=== PATIENT | female | born 1970 | race Caucasian/White ===

== ENCOUNTER → 2017-02-14 | Outpatient (CLI) | payer MEDICARE, MEDICAID ==
[~2017-02-14] MED LIST: AMITRIPTYLINE 225 MG PO; CIPRO 500MG TA500 MG PO; DILANTIN 100MG100 MG PO; ESCITALOPRAM10 M1 PO; ESCITALOPRAM20 MG PO; FLAGYL 500MG.500 MG PO; FLEXERIL10 MG PO; IBU400 MG PO; LORTAB 10/3251 TAB PO; MIRALAX17 GM PO; PERCOCET 5/3251 EACH PO; PROBIOTIC BLEN1 EACH PO; PROPRANOLOL HCL20 MG PO; VALIUM 10MG TAB10 MG PO; ZOFRAN4 MG PO
[2017-02-14 14:40] LABS: HEMOGLOBIN 11.2 g/dL (12.2-16.2); LYMPH # 2.2 K/mm3 (0.7-4.5); LYMPH % 23.5 % (10-50.0)
[2017-02-14 17:35] LABS: BUN 7 mg/dL (7-18)
[2017-02-14 17:37] LABS: GFR (ESTIMATED) 133 ML/MIN (59-)
== END ==
LOC: LAB 14:20
PROVIDERS: Surgery
DX: R10.9 Unspecified abdominal pain (principal); Z90.49 Acquired absence of other specified parts of digestive tract; Z09 Encounter for follow-up examination after completed treatment for conditions other than malignant neoplasm

== ENCOUNTER 2017-06-11 21:20 | Emergency (ER) | payer MEDICARE, MEDICAID ==
[~2017-06-11] VITALS: Ht 167.6 cm; Wt 52.2 kg
[2017-06-11] MEDS ORDERED: PROTONIX 40MG T40 MG PO (21:35)
--- OUTSIDE RECORDS SUMMARY | 2017-06-11 21:44 | External Medical Summary Rpt ---
Author Author [facility] Organization [facility] Address Unknown Phone Unavailable Care Team Providers Care Corporate Legal Assistant Name Role Phone Jem FINK PCP [phone] [facility] [id number] Date(s): 01/24/17 - 01/25/17 [facility] [address] [place] [address]- [phone] Discharge Diagnosis: Elevated white blood cell count Discharge Diagnosis: Hypokalemia Discharge Diagnosis: Bilateral pleural effusion Discharge Diagnosis: Elevated liver enzymes Discharge Diagnosis: Abdominal pain Discharge Disposition: OP Self Care or Home Attending Physician: ROSITA GILMAN MD-EMR Admitting Physician: ROSITA GILMAN MD-EMR Referring Physician: ROSITA GILMAN MD-EMR Reason for Visit UNSPECIFIED ABDOMINAL PAIN Vital Signs Most recent 1 2 to oldest [Reference Range]: Temperature Oral Oral Source (01/25/17 1:00 AM) (01/24/17 6:01 PM) Temperature Fahrenheit Fahrenheit Mode (01/25/17 1:00 AM) (01/24/17 6:01 PM) Temperature, 98.7 Deg F 99.3 Deg F Fahrenheit (01/25/17 1:00 AM) (01/24/17 6:01 PM) [96.8-99.7 Deg F] Clinical 37.1 Deg C 37.4 Deg C Temperature, (01/25/17 1:00 AM) (01/24/17 6:01 PM) C Peripheral 89 bpm 119 bpm Pulse Rate (01/25/17 1:00 AM) *HI* [60-100 bpm] (01/24/17 6:01 PM) Respiratory 16 Breaths/Min Rate [14-20 (01/25/17 1:00 AM) Breaths/Min] Blood 121/74 mmHg 113/68 mmHg Pressure (01/25/17 1:00 AM) (01/24/17 6:01 PM) [90-140/60-9 0 mmHg] Oxygen 96 % 94 % Saturation (01/25/17 1:00 AM) (01/24/17 6:01 PM) [94-100 %] Oxygen Room air Room air Therapy Mode (01/25/17 1:00 AM) (01/24/17 6:01 PM) Height Stated Source (01/24/17 6:01 PM) Height Entry [place] Format (01/24/17 6:01 PM) Height/Lengt 5 ft h, BERMUDIAN (01/24/17 6:01 PM) (ft) Height/Lengt 6 Inch h BERMUDIAN (01/24/17 6:01 PM) CLINICALHEIG 167.64 cm HT (01/24/17 6:01 PM) Weight Critical estimated dosing Source, ED weight (01/24/17 6:01 PM) Weight Entry [place] Format (01/24/17 6:01 PM) Weight 125 lb [place] lb (01/24/17 6:01 PM) CLINICALWEIG 56.82 kg HT (01/24/17 6:01 PM) Body Surface 1.64 m2 Area (BSA) (01/24/17 6:01 PM) Body Mass 20.2 kg/m2 Index (BMI) (01/24/17 6:01 PM) [19.0-24.0 kg/m2] Dexter Body 59 kg Weight (01/24/17 6:01 PM) Problem List Condition Effective Status Health Informant Dates Status Epilepsy(Con Active firmed) History of Active pseudoseizur e(Confirmed) Bipolar Active disorder(Con firmed) Allergies, Adverse Reactions, Alerts Substance Reaction Severity Status acetaminophen-pr Active opoxyphene OXcarbazepine Active PARoxetine Active penicillin Active traMADol Active Medications acetaminophen-hydrocodone (acetaminophen-hydrocodone 325 mg-10 mg oral tablet) Refills: 0 amitriptyline (amitriptyline 25 mg oral tablet) Refills: 0 diazepam (diazepam 10 mg oral tablet)1 Tab, Oral, Three Times A Day, As Needed, for anxiety, Refills: 0 naproxen (naproxen 500 mg oral tablet) Refills: 0 ondansetron (ondansetron 4 mg oral tablet, disintegrating)1 Tab, Oral, zzzAdHoc, Refills: 0 phenytoin (phenytoin 100 mg oral capsule, extended release) Refills: 0 propranolol (propranolol 20 mg oral tablet) Refills: 0 Results GENERAL CHEMISTRY Most recent 1 2 to oldest [Reference Range]: Sodium Level 135 mmol/L [136-146 *LOW* mmol/L] (01/24/17 9:19 PM) Potassium 3.2 mmol/L Level *LOW* [3.5-5.1 (01/24/17 9:19 PM) mmol/L] Chloride 99 mmol/L Level *LOW* [102-112 (01/24/17 9:19 PM) mmol/L] Carbon 26 mmol/L Dioxide (01/24/17 9:19 PM) Level [21-32 mmol/L] Anion Gap 13 [9-20] (01/24/17 9:19 PM) Glucose 117 mg/dL Level *HI* [74-106 (01/24/17 9:19 PM) mg/dL] Blood Urea 3 mg/dL Nitrogen *LOW* [7-22 mg/dL] (01/24/17 9:19 PM) Creatinine 0.40 mg/dL Level *LOW* [0.55-1.02 (01/24/17 9:19 PM) mg/dL] eGFR 210 mL/min/1.73m2 [>=60 (01/24/17 9:19 PM) mL/min/1.73m 2] eGFR 173 mL/min/1.73m2 NonAfrican (01/24/17 9:19 PM) [>=60 mL/min/1.73m 2] Bun/Creatini 7.5 ne *LOW* [8.0-20.0] (01/24/17 9:19 PM) Calcium 8.2 mg/dL Level *LOW* [8.5-10.1 (01/24/17 9:19 PM) mg/dL] Protein 6.6 Gram/dL Total (01/24/17 9:19 PM) [6.4-8.2 Gram/dL] Albumin 1.7 Gram/dL Level *LOW* [3.4-5.0 (01/24/17 9:19 PM) Gram/dL] Globulin 4.9 Gram/dL [1.5-4.5 *HI* Gram/dL] (01/24/17 9:19 PM) A/G Ratio 0.3 [1.1-2.5] *LOW* (01/24/17 9:19 PM) Bilirubin 0.2 mg/dL Total (01/24/17 9:19 PM) [0.2-1.0 mg/dL] Alk Phos 433 Units/Liter [27-136 *HI* Units/Liter] (01/24/17 9:19 PM) AST [5-37 120 Units/Liter Units/Liter] *HI* (01/24/17 9:19 PM) ALT [12-78 77 Units/Liter Units/Liter] (01/24/17 9:19 PM) Lipase Level 75 Units/Liter [73-393 (01/24/17 9:19 PM) Units/Liter] Lactic Acid 1.3 mmol/L 3.0 mmol/L 1 Level (01/24/17 11:19 PM) *CRIT* [0.4-2.0 (01/24/17 9:19 PM) mmol/L] 1Result Comment: CALLED TO:Kendall Miller DATE/TIME CALLED:01/24/2017 22:01:43 EDT READ BACK AND VERIFIED:y CALLED BY: [email or web address] Most recent 1 2 to oldest [Reference Range]: WBC 18.8 K/uL [4.0-10.0 *HI* K/uL] (01/24/17 9:19 PM) RBC 3.23 Million/uL [3.93-5.22 *LOW* Million/uL] (01/24/17 9:19 PM) Hgb 9.7 g/dL [11.2-15.7 *LOW* g/dL] (01/24/17 9:19 PM) Hct 29.4 % [34.1-44.9 *LOW* %] (01/24/17 9:19 PM) MCV 91.0 fL [79.0-94.8 (01/24/17 9:19 PM) fL] MCH 30.0 pg [25.6-32.2 (01/24/17 9:19 PM) pg] MCHC 33.0 Gram/dL [32.2-36.5 (01/24/17 9:19 PM) Gram/dL] Platelet 808 K/uL Count *HI* [163-369 (01/24/17 9:19 PM) K/uL] MPV 8.8 fL [9.4-12.4 *LOW* fL] (01/24/17 9:19 PM) RDW 12.8 % [11.6-14.4 (01/24/17 9:19 PM) %] Neutrophil 82 % Percent Man *HI* [50-65 %] (01/24/17 9:19 PM) Lymph 9 % Percent Man *LOW* [24-44 %] (01/24/17 9:19 PM) [place] Percent 8 % Man [4-5 %] *HI* (01/24/17 9:19 PM) Eos Percent 0 % Man [0-3 %] (01/24/17 9:19 PM) Baso Percent 1 % Man [0-1 %] (01/24/17 9:19 PM) RBC Normal Morphology (01/24/17 9:19 PM) Platelet Ct Increased Estimate *ABN* [Adequate] (01/24/17 9:19 PM) Slide Review Add Diff Man (01/24/17 9:19 PM) URINALYSIS Most recent 1 2 to oldest [Reference Range]: Urine Type U CleanCatch (01/24/17 9:27 PM) Urine Color Yellow *NA* (01/24/17 9:27 PM) Urine Clear Appearance (01/24/17 9:27 PM) Urine 1.019 Specific (01/24/17 9:27 PM) [place] [1.005-1.030 ] Urine pH 6.0 Dipstick (01/24/17 9:27 PM) [6.0-8.0] Urine Negative Leukocyte (01/24/17 9:27 PM) Esterase [Negative] Urine Negative Nitrite (01/24/17 9:27 PM) [Negative] Urine Trace Protein *ABN* Dipstick (01/24/17 9:27 PM) [Negative] Urine Negative Glucose (01/24/17 9:27 PM) Dipstick [Negative] Urine Negative Ketones (01/24/17 9:27 PM) Dipstick [Negative] Urine 1.0 EU/dL Urobilinogen (01/24/17 9:27 PM) Dipstick Urine Negative Bilirubin (01/24/17 9:27 PM) Dipstick [Negative] Urine Blood Negative Dipstick (01/24/17 9:27 PM) [Negative] Ur RBC 0-2 /HPF *ABN* (01/24/17 9:27 PM) Ur WBC 0-2 /HPF (01/24/17 9:27 PM) Ur Mucous Trace *ABN* (01/24/17 9:27 PM) Ur Squamous 2-5 /HPF Epithelial *ABN* Cells (01/24/17 9:27 PM) Ur Hyaline 0-2 /LPF Casts *ABN* (01/24/17 9:27 PM) Ur WBC Casts 0-2 /LPF *ABN* (01/24/17 9:27 PM) Microbiology Reports TEST: Wound Culture STATUS: Order in Progress BODY SITE: Abdomen SOURCE: Wound COLLECTED DATE/TIME: 01/24/17 10:01 PMPRELIMINARY REPORTNo growthSTAIN REPORTNo organisms seen. No cells seenTEST: Blood Culture STATUS: Order in Progress BODY SITE: SOURCE: Blood COLLECTED DATE/TIME: 01/24/17 9:19 PMPRELIMINARY REPORTNo growth at 1 day.TEST: Blood Culture STATUS: Order in Progress BODY SITE: SOURCE: Blood COLLECTED DATE/TIME: 01/24/17 9:19 PMPRELIMINARY REPORTNo growth at 1 day. Immunizations No data available for this section Procedures No data available for this section Social History Social History Response Type Smoking Status Tobacco Use Within Last Twelve Months Cigarettes; Current every day smoker; Packs/Tins Daily 1 Assessment and Plan No data available for this section Hospital Discharge Instructions Patient EducationAbdominal Pain, Adult, [id number] Colostomy Home Guide Colostomy Surgery, Care After
--- OUTSIDE RECORDS SUMMARY | 2017-06-11 21:44 | External Medical Summary Rpt ---
Author Author [facility] Organization [facility] Address Unknown Phone Unavailable Care Team Providers Care Engraver Jewelry Name Role Phone Jem FINK PCP [phone] Encounter [facility] [id number] Date(s): 01/24/17 - 01/25/17 [facility] [address] [place] [address]- [phone] Discharge Diagnosis: Elevated white blood cell count [...] Stated Source (01/24/17 6:01 PM) Height Entry [place] Format (01/24/17 6:01 PM) Height/Lengt 5 ft h, CYMRA[place] (01/24/17 6:01 PM) (ft) Height/Lengt 6 Inch h CYMRAES (01/24/17 6:01 PM) CLINICALHEIG 167.64 cm HT (01/24/17 6:01 PM) Weight Critical estimated dosing Source, ED weight (01/24/17 6:01 PM) Weight Entry [place] Format (01/24/17 6:01 PM) Weight 125 lb [place] lb (01/24/17 6:01 PM) CLINICALWEIG 56.82 kg HT (01/24/17 6:01 PM) Body Surface 1.64 m2 Area (BSA) (01/24/17 6:01 PM) Body Mass 20.2 kg/m2 Index (BMI) (01/24/17 6:01 PM) [19.0-24.0 kg/m2] [place] Body 59 kg Weight (01/24/17 6:01 PM) [...] Man *LOW* [24-44 %] (01/24/17 9:19 PM) [place] Percent 8 % Man [4-5 %] *HI* [...] PM) Urine 1.019 Specific (01/24/17 9:27 PM) [place] [1.005-1.030 ] Urine pH 6.0 Dipstick (01/24/17 [...] Hospital Discharge Instructions Patient EducationAbdominal Pain, Adult, [id number] Colostomy Home Guide Colostomy Surgery, Care After
--- OUTSIDE RECORDS SUMMARY | 2017-06-11 21:58 | External Medical Summary Rpt ---
Author Author , ESTHER SANTANA Address Unknown Phone .[employer] Immunization Name Date Rout CVX Reac Dose Comm Prov Is Faci e tion ent ider Refu lity Give sed n Td 07-0 9 999 Hist H149 No H149 (brett 7-20 oric lt), 00 al Info adso rmat rbed ion - Sour ce Unsp ecif ied
--- OUTSIDE RECORDS SUMMARY | 2017-06-11 21:58 | External Medical Summary Rpt ---
Author Author , ESTHER SANTANA Address Unknown Phone [email or web address] Immunization Name Date Rout CVX Reac Dose Comm Prov Is Faci e tion ent ider Refu lity Give sed n Td 07-0 9 999 Hist H149 No H149 (brett 7-20 oric lt), 00 al Info adso rmat rbed ion - Sour ce Unsp ecif ied
[2017-06-11 22:51] VITALS: BP 127/74
--- NOTE | 2017-06-11 22:51 | Emergency Room Report ---
History of Present Illness Time Seen by [id number] Presenting Problem in Triage Pt arrived:Walked Presenting Problem:PT. STATES SHE HAS A KNOT THE SIZE OF A BASEBALL BESIDE COLOSTOMY BAG. HAS HAD COLOSTOMY SINCE DECEMBER. 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 N Clinical Suspician of Infection? N Mental Status: 1 - Regular (Normal Baseline) Sepsis Risk:Possible Sepsis Risk Have you (or family members/close friends) recently traveled outside the [place]? N If Yes, where/when: Have you had exposure to infectious disease within the past month? N TB? Other? Specify: Source patient, RN notes reviewed, family, old records Exam Limitations no limitations Comment pt with colostomy earlier this yr and noted swelling to abd pericolostomy area- pt with no fever and colostomy working - no vomiting and no sig pain Cardiac Chest Pain Chest pain indicative of cardiac No Timing/Duration this evening Severity moderate ALLERGIES Coded Allergies: acetaminophen (From DARVOCET-N) (Mild, 01/27/17) paroxetine (Mild, 01/27/17) propoxyphene (From DARVOCET-N) (Mild, 01/27/17) tramadol (From ULTRAM) (Mild, 01/27/17) Penicillins (01/27/17) oxcarbazepine (From TRILEPTAL) (I-RASH 01/27/17) Home Medications Reported Medications Escitalopram Oxalate 10 MG PO DAILY #30 TAB Phenytoin Sodium (Dilantin 100MG CAP) 200 MG PO BID Propranolol Hcl 20 MG PO BID Diazepam (Valium 10MG) 10 MG PO BID Amitriptyline Hcl (Amitriptyline) 75 MG PO QHS HYDROCODONE/ACETAMINOPHEN (Lortab 10-325 MG Tablet) 1 TAB PO QID Pantoprazole Sodium (Protonix 40MG TAB) 40 MG PO DAILY History Medical History General CAD? No Angina: Yes [place]: Yes Hypertension? No Hyperlipidemia? No CHF? No DVT? No PE? No COPD? No Asthma? No Anemia? No GERD? No Gastric ulcers? No GI Bleed? No Hernia? No Thyroid Problems? No Hypothyroidism? No CVA? No Seizures? Yes Diabetes? No End Stage Renal Disease? No UTI? Yes Stones? Yes BPH? No GB Disease: Yes Nephritic Syndrome? No Asplenia? No Hepatitis? No Sickle Cell Disease? No Arthritis? No Migraines? No Cataracts? No Glaucoma? No MRSA? No HIV? No TB? No Anxiety? Yes Depression? Yes Cancer? No More? 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 Respiratory denies cough, denies shortness of breath, denies wheezing Cardiovascular denies chest pain, denies palpitations, denies syncope Gastrointestinal see HPI, denies abdominal pain, denies diarrhea, denies vomiting, other Genitourinary denies: dysuria, frequency, hesitancy, hematuria. Musculoskeletal denies back pain, denies joint pain, denies joint swelling, denies neck pain Skin denies rash Psychiatric/Neurological denies headache, denies seizure Physical Exam Vital Signs Vital Signs Date Time Temp Pulse Resp B/P Pulse O2 O2 Flow FiO2 Ox Delivery Rate 06/11 2125 98.4 94 20 127/74 100 - WBC >12,000 or <4,000 or 10% bands? 2 or more SIRS Criteria Met? B/P:127/74 MAP:91 Creatinine >2.0? UA output<0.5ml/kg/hr for 2 hrs? Platelet count >100,000? Lactate >2.0mmol/1? INR >1.2 or PTT > than 60 sec? Evidence of Organ Dysfunction? Provider documented clinical suspician of infection? N Sepsis Criteria Count: 2 Sepsis Risk: Possible Sepsis Risk General Appearance no apparent distress Eye Exam - bilateral eye PERRL, bilateral eye EOMI Ear, Nose, Throat normal ENT inspection Neck supple Respiratory Status No: respiratory distress. 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 No Departure Departure Time of Disposition 2244 Disposition DC Home or Self Care(routine) Clinical Impression Primary Impression: Seroma Condition STABLE Referrals Supa Rodgers MD (Family) Patient Instructions How to Care for Your Colostomy or Ileostomy Additional Instructions call dr russo and recheck if needed Discharge Counseling Counseled pt/family regarding diagnosis, follow up needs ED Critical Care Critical Care No Comments pt and i agreed to hold on ct at this time at 2250
--- NOTE | 2017-06-11 22:51 | Emergency Room Report ---
History of Present Illness Time Seen by [id number] Presenting Problem in Triage Pt arrived:Walked Presenting Problem:PT. STATES SHE HAS A KNOT THE SIZE OF A BASEBALL BESIDE COLOSTOMY BAG. HAS HAD COLOSTOMY SINCE DECEMBER. 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 N Clinical Suspician of Infection? N Mental Status: 1 - Regular (Normal Baseline) Sepsis Risk:Possible Sepsis Risk Have you (or family members/close friends) recently traveled outside the [place]? N If Yes, where/when: Have you had exposure to infectious disease within the past month? N TB? Other? Specify: Source patient, RN notes reviewed, family, old records Exam Limitations no limitations Comment pt with colostomy earlier this yr and noted swelling to abd pericolostomy area- pt with no fever and colostomy working - no vomiting and no sig pain Cardiac Chest Pain Chest pain indicative of cardiac No Timing/Duration this evening Severity moderate ALLERGIES Coded Allergies: acetaminophen (From DARVOCET-N) (Mild, 01/27/17) paroxetine (Mild, 01/27/17) propoxyphene (From DARVOCET-N) (Mild, 01/27/17) tramadol (From ULTRAM) (Mild, 01/27/17) Penicillins (01/27/17) oxcarbazepine (From TRILEPTAL) (I-RASH 01/27/17) Home Medications Reported Medications Escitalopram Oxalate 10 MG PO DAILY #30 TAB Phenytoin Sodium (Dilantin 100MG CAP) 200 MG PO BID Propranolol Hcl 20 MG PO BID Diazepam (Valium 10MG) 10 MG PO BID Amitriptyline Hcl (Amitriptyline) 75 MG PO QHS HYDROCODONE/ACETAMINOPHEN (Lortab 10-325 MG Tablet) 1 TAB PO QID Pantoprazole Sodium (Protonix 40MG TAB) 40 MG PO DAILY History Medical History General CAD? No Angina: Yes [place]: Yes Hypertension? No Hyperlipidemia? No CHF? No DVT? No PE? No COPD? No Asthma? No Anemia? No GERD? No Gastric ulcers? No GI Bleed? No Hernia? No Thyroid Problems? No Hypothyroidism? No CVA? No Seizures? Yes Diabetes? No End Stage Renal Disease? No UTI? Yes Stones? Yes BPH? No GB Disease: Yes Nephritic Syndrome? No Asplenia? No Hepatitis? No Sickle Cell Disease? No Arthritis? No Migraines? No Cataracts? No Glaucoma? No MRSA? No HIV? No TB? No Anxiety? Yes Depression? Yes Cancer? No More? 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 Respiratory denies cough, denies shortness of breath, denies wheezing Cardiovascular denies chest pain, denies palpitations, denies syncope Gastrointestinal see HPI, denies abdominal pain, denies diarrhea, denies vomiting, other Genitourinary denies: dysuria, frequency, hesitancy, hematuria. Musculoskeletal denies back pain, denies joint pain, denies joint swelling, denies neck pain Skin denies rash Psychiatric/Neurological denies headache, denies seizure Physical Exam Vital Signs Vital Signs Date Time Temp Pulse Resp B/P Pulse O2 O2 Flow FiO2 Ox Delivery Rate 06/11 2125 98.4 94 20 127/74 100 - WBC >12,000 or <4,000 or 10% bands? 2 or more SIRS Criteria Met? B/P:127/74 MAP:91 Creatinine >2.0? UA output<0.5ml/kg/hr for 2 hrs? Platelet count >100,000? Lactate >2.0mmol/1? INR >1.2 or PTT > than 60 sec? Evidence of Organ Dysfunction? Provider documented clinical suspician of infection? N Sepsis Criteria Count: 2 Sepsis Risk: Possible Sepsis Risk General Appearance no apparent distress Eye Exam - bilateral eye PERRL, bilateral eye EOMI Ear, Nose, Throat normal ENT inspection Neck supple Respiratory Status No: respiratory distress. 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 No Departure Departure Time of Disposition 2244 Disposition DC Home or Self Care(routine) Clinical Impression Primary Impression: Seroma Condition STABLE Referrals Supa Rodgers MD (Family) Patient Instructions How to Care for Your Colostomy or Ileostomy Additional Instructions call dr russo and recheck if needed Discharge Counseling Counseled pt/family regarding diagnosis, follow up needs ED Critical Care Critical Care No Comments pt and i agreed to hold on ct at this time at 2250
== END 2017-06-11 22:51 ==
LOC: ER 21:20
DX: K91.872 Postprocedural seroma of a digestive system organ or structure following a digestive system procedure (principal); R56.9 Unspecified convulsions; F41.8 Other specified anxiety disorders; Z72.0 Tobacco use

== ENCOUNTER → 2017-09-19 | Outpatient (CLI) | payer MEDICARE, MEDICAID ==
[~2017-09-19] MED LIST changes: +PROTONIX 40MG T40 MG PO
--- NOTE | 2017-09-19 10:28 | RADIOLOGY REPORT PS360 ---
CT ABD PELVIS W/ CONTRAST CLINICAL INDICATION: PRIOR COLON RESECTION, ABD SWELLING ORDERING PHYSICIAN: Oracio Rosen MD PATIENT AGE: 47 years COMPARISON: 06/24/2017 TECHNIQUE: Axial images obtained with sagittal and coronal reformats. PROCEDURE: Oral Contrast: Redicat IV Contrast: 75 mL's Isovue-370 FINDINGS: Fibrotic changes are present in the left lung base. The liver, spleen, adrenal glands have an unremarkable appearance. No obvious pancreatic mass or ductal dilatation. There is pancreatic atrophy. Prior cholecystectomy without biliary dilatation. There are few small lymph nodes in the celiac region unchanged. No renal or ureteral calculi or hydronephrosis or renal mass is evident. There is a left upper quadrant colostomy which has an unremarkable appearance. A Quispe's pouch is present. No pelvic or abdominal mass or abnormal fluid collection. No abscess or focal inflammatory change. No evidence of appendicitis or diverticulitis. No acute bony anomalies. There is diastases of the abdominal wall centrally but no eloisa herniation as before. IMPRESSION: 1. No acute intra-abdominal or pelvic pathology. No significant change. 2. Postsurgical changes from prior partial colectomy of the descending and sigmoid colon with left upper quadrant colostomy
== END ==
LOC: RAD 08:54
DX: R19.00 Intra-abdominal and pelvic swelling, mass and lump, unspecified site (principal); K65.8 Other peritonitis; R14.0 Abdominal distension (gaseous)
CPT/HCPCS: Q9967